=== PATIENT | male | born 1955 | race Caucasian/White ===

== ENCOUNTER 2021-12-28 18:49 | Emergency (ER) | payer MEDICARE, SELFPAY ==
[2021-12-28 21:01] VITALS: BP 148/76; PULSE 76; RESP 20; TEMP 37.2; O2SAT 98
[2021-12-28 21:29] VITALS: BP 148/76; PULSE 76; RESP 16; TEMP 37.2; O2SAT 98; BMI 29.5
== END 2021-12-28 22:49 | disposition left against medical advice (07) ==
PROVIDERS: Emergency Provider Emergency Medicine; PCP Internal Medicine
DX: S61.219A Laceration without foreign body of unspecified finger without damage to nail, initial encounter (principal); W26.9XXA Contact with unspecified sharp object(s), initial encounter; Y93.9 Activity, unspecified; Y92.9 Unspecified place or not applicable; Y99.9 Unspecified external cause status; Z79.899 Other long term (current) drug therapy
CPT/HCPCS: 99281; 99282

== ENCOUNTER 2024-09-08 22:56 | Emergency (ER) | payer BC, MEDICARE, SELFPAY ==
[2024-09-08 23:01] VITALS: BP 134/68; PULSE 76; O2SAT 97
[2024-09-08 23:15] VITALS: BP 115/57; PULSE 70; RESP 16; TEMP 36.1; O2SAT 96; BMI 24.0
[2024-09-08 23:21] VITALS: BP 139/65; PULSE 71; RESP 18; TEMP 36.6; O2SAT 95
[2024-09-08 23:46] LABS: Basophils Percent Auto 0.7 % (0-2); Eosinophils Absolute Auto 0.1 X10*3/uL (0.0-0.4); Eosinophils Percent Auto 2.6 % (0-4); Hematocrit 31.8 % (42.0-52.0); Hemoglobin 10.1 g/dl (14.0-18.0); Imm Gran Abs Auto 0.01 X10*3/uL (0.00-0.03); Imm Gran Pct Auto 0.2 % (0.0-0.4); Lymphocytes Absolute Auto 0.9 X10*3/uL (1.2-4.9); Lymphocytes Percent Auto 16.1 % (20-40); MANUAL DIFF FLAG NO; Mean Corpuscular HGB Conc 31.8 g/dl (31.0-36.0); Mean Corpuscular Hemoglobin 23.3 pg (27.0-33.0); Mean Corpuscular Volume 73.4 fL (80.0-98.0); Mean Platelet Volume 8.9 fL (9.4-12.4); Monocytes Absolute Auto 0.5 X10*3/uL (0.1-1.2); Monocytes Percent Auto 8.8 % (2-11); Neutrophils Absolute Auto 3.9 x10*3/uL (2.0-8.3); Neutrophils Percent Auto 71.6 % (45-73); Platelet Count 170 X10*3/uL (160-400); Red Blood Count 4.33 X10*6/uL (4.60-5.80); Red Cell Distribution Width 16.9 % (11.0-16.0); White Blood Count 5.5 X10*3/uL (4.8-10.8)
--- OUTSIDE RECORDS SUMMARY | 2024-09-08 23:47 | XMS_ITS | Clinical Summary ---
Author Organization [address] Address [address] [place] [address] Phone Care Team Providers Care Baling Machine Tender Name Role Phone Kaylie Sibley MD Primary Care Provider Allergies Active Allergy Reactions Criticality Noted Date Comments Cephalexin Monohydrate Hives High 02/20/2006 Levofloxacin Hives High 02/20/2006 Penicillin G Procaine Hives 05/31/2005 Sulfacetamide Sodium Hives 05/31/2005 Medications cholecalciferol (VITAMIN D-3) 50 mcg (2,000 unit) tablet Take 1 tablet (2,000 Units total) by mouth 1 (one) time each day. 05/18/19 23 Active warfarin (COUMADIN) 5 mg tablet Take 0.5-1 tablets (2.5-5 mg total) by mouth 1 (one) time each day. Sig - Route: Take 0.5-1 Tablets by mouth daily. May cause heavy bleeding. Take at same time every day. Do not change dietary habits. - Oral 01/03/20 24 Active multivitamin tablet Take 1 tablet by mouth 1 (one) time each day. Active omeprazole (PriLOSEC) [address] capsule Take 1 capsule (40 mg total) by mouth 1 (one) time each day before breakfast. 90 capsule 1 06/29/19 25 Active atorvastatin (LIPITOR) 20 mg tabletIndications: Hyperlipidemia, unspecified hyperlipidemia type Take 1 tablet (20 mg total) by mouth 1 (one) time each day. 90 each 1 09/06/19 25 025 Active atorvastatin (LIPITOR) 10 mg tabletIndications: Hyperlipidemia, unspecified hyperlipidemia type Take 1 tablet (10 mg total) by mouth at bedtime. 90 tablet 07/09/19 25 025 Discontinued atorvastatin (LIPITOR) 20 mg tabletIndications: Hyperlipidemia, unspecified hyperlipidemia type Take 1 tablet (20 mg total) by mouth 1 (one) time each day. 90 each 09/06/19 25 025 Discontinued Active Problems Problem Noted Date Diagnosed Date Chronic deep vein thrombosis of right lower extremity ([facility] V24, [facility]/HCC V28) 03/05/2024 Anxiety 04/28/2015 Hearing loss 03/16/2015 Venous angioma of brain ([facility] V24, [facility] V2 8) 11/19/2014 Mixed hyperlipidemia 08/31/2014 Compression fracture of body of thoracic vertebra ([facility] V24, [facility] V28) 04/06/2014 Overview (03/05/2024): T11, T8, L4 Vitamin D deficiency 09/08/2013 Gastroesophageal junction ulcer 07/13/2011 Overview (03/03/2024): [facility] 07/03/11 Colon cancer ([facility] V24, [facility] V28) 12/24/19 11 Malignant tumor of colon ([facility] V24, [facility] V 28) 11/25/2010 Overview (03/03/2024): May 2018 - had emergency rectal surgery at [facility] for a grapefruit-sized rectal mass which the patient reports as malignant. Patient reports will need to additional surgeries as well as chemo and radiation. He is being followed by a team at [facility]. 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 Indefinite coumadin IMO update Crohn's disease ([facility]/HCC V24, [facility]/HCC V28) 05/31 Overview (03/03/2024): Dx 2003; Treatments with Asacol Depression 05/31/2005 Encounters Date Type Department Care Team Description 09/03/2024 Anticoagulation - Warfarin Visit [facility] Clinic - [address] [phone] Sarah Tariq LPN Chronic deep vein thrombosis (DVT) of right lower extremity, unspecified vein ([facility]/HCC V24, [facility]/HCC V28) (Primary Dx) 08/26/2024 Anticoagulation - Warfarin Visit Coumadin [address] [phone] Marisabel Wan LPN Chronic deep vein thrombosis (DVT) of right lower extremity, unspecified vein ([facility]/HCC V24, [facility]/HCC V28) (Primary Dx) 08/22/2024 Telephone Adult Medicine [place] - [address] [phone] Isabella Hamilton MA Results 08/21/2024 Anticoagulation - Warfarin Visit Coumadin [address] [phone] Marisabel Wan LPN Chronic deep vein thrombosis (DVT) of right lower extremity, unspecified vein ([facility]/HCC V24, [facility]/HCC V28) (Primary Dx) 08/13/2024 Anticoagulation - Warfarin Visit Coumadin [address] [phone] Marisabel Wan LPN Chronic deep vein thrombosis (DVT) of right lower extremity, unspecified vein ([facility]/HCC V24, CMS/HCC V28) (Primary Dx) 08/08/2024 Anticoagulation - Warfarin Visit Coumadin [address] [phone] Marisabel Wan LPN Chronic deep vein thrombosis (DVT) of right lower extremity, unspecified vein ([facility]/HCC V24, [facility]/HCC V28) (Primary Dx) 08/04/2024 Anticoagulation - Warfarin Visit Coumadin [address] [phone] Sarah Tariq LPN Chronic deep vein thrombosis (DVT) of right lower extremity, unspecified vein ([facility] V24, [facility]/HCC V28) (Primary Dx) 07/31/2024 Anticoagulation - Warfarin Visit Coumadin [address] [phone] Sarah Tariq LPN Chronic deep vein thrombosis (DVT) of right lower extremity, unspecified vein ([facility] V24, CMS/HCC V28) (Primary Dx) 07/28/2024 Nurse Triage Adult Medicine [address] [phone] Kaylie Sibley MD 07/24/2024 Anticoagulation - Warfarin Visit Coumadin [address] [phone] Marisabel Wan LPN Chronic deep vein thrombosis (DVT) of right lower extremity, unspecified vein ([facility] V24, CMS/HCC V28) (Primary Dx) 06/25/2024 Anticoagulation - Warfarin Visit [address] [phone] Marisabel Wan LPN Chronic deep vein thrombosis (DVT) of right lower extremity, unspecified vein ([facility] V24, [facility]/HCC V28) (Primary Dx) from Last 3 Months Immunizations Name Administration Dates Next Due Influenza Quadravalent, 0.5m l (Fluad) 65yo and older 01/15/2023 Influenza Quadravalent, MDCK , 0.5ml, preservative free (Flucelvax) 6mo and older 01/15/2020 Influenza Quadrivalent, 0.5m l, preservative free (Fluarix; FluLaval; Fluzone) ages 6mo and older (Afluria) 3yo and older 01/25/2022 Influenza trivalent, 0.5mL ( Fluad) 65yo and older 01/21/2015,02/14/2012,01/28/2010,02/20 Influenza trivalent, 0.5mL ( Fluzone High-dose) 65yo and older 01/21/2024 Influenza trivalent, 0.5mL, preservative free (Fluarix; FluLaval; Fluzone) ages 6mo and older (Afluria) 3 years and older 01/28/2021,02/21/2008 Influenza trivalent, with pr eservative (Fluzone; Afluria) 6mo and older 02/15/2011,02/21/2008 Influenza, Unspecified 02/06/2023,2020,02/04/2019,02/12,02/21/2017,01/30/2016,02/08/2014 Moderna SARS-CoV-2 COVID-19, mRNA, LNP-S, preservative free 03/30/2023,04/17/2022 PPD Test 11/15/2010,03/03/2008 Pneumococcal conjugate 20 va lent (Prevnar 20, PCV 20) 2mo and older 01/15/2023 Pneumococcal polysaccharide 23 valent (Pneumovax 23) 2yo and older 11/19/2010 RSV, bivalent, protein subun it RSVpreF, 0.5mL, Preservative Free (Arexvy) 60yo and older 01/21/2024 Tdap Tetanus diptheria acell ular pertussis (Boostrix; Adacel) 7yo and older 11/11/2020,03/22/2010 Zoster recombinant (Shingrix ) 19yo and older 06/05/2023,06/01/2023,03/30/2023 Surgical History Surgery Date Site/Laterality Comments COLONOSCOPY W/ BIOPSIES 11/21/2010 PROCEDURE: [facility] COLONOSCOPY W/BIOPSY SINGLE/MULTIPLE; COMMENT: [facility]; AGAPITO; poorly diff adenoca, 2 separate sites. OTHER SURGICAL HISTORY 12/13/2010 PROCEDURE: [facility] COLCT TOT ABDL W/O PRCTECT W/ILEOST/ILEOPXTS; COMMENT: subtotal colectomy with ileostomy ESOPHAGOGASTRODUODENOSCOPY 07/05/2011 PROCEDURE: [facility] ESOPHAGOGASTRODUODENOSCOPY TRANSORAL DIAGNOSTIC; COMMENT: 5 mm distal esophageal ulcer, no bx, start ppi, [facility]ita at [facility]. Medical History Medical History Date Comments Depressive disorder, not els ewhere classified 05/31/2005 DX:Depressive disorder, not elsewhere classified Historical Medical DX 11/14/2006 DX:Other a cute embolism veins; COMMENT: recurrent DVT's-first event was in 2000 and recurrent event in 2002. Indefinite coumadin Idiopathic osteoporosis 02/12/2007 DX:Idiop athic osteoporosis Regional enteritis of unspec ified site 05/31/2005 DX:Regional enteritis of uns pecified site; COMMENT: Dx 2003; Treatments with Asacol Rosacea 04/02/2007 DX:Rosacea Peripheral neuropathy 04/02/2007 DX:Periphe ral neuropathy Special screening for malign ant neoplasms, colon 05/27/2009 DX:Special screening for mal ignant neoplasms, colon Colon cancer ([facility] V24, [facility] [place] V28) 11/25/2010 DX:Colon cancer (HCC) Rectal cancer ([facility]/HCC V24, [facility] V28) 06/24/2018 DX:Rectal cancer (HCC); COMM ENT: May 2018 - had emergency rectal surgery at [facility] for a grapefruit-sized rectal mass which the patient reports as malignant. Patient reports will need to additional surgeries as well as chemo and radiation. He is being followed by a team at [facility]. Family History Medical History Relation Name Comments Breast cancer Aunt Other: metastatic cancer (?type) Maternal Grandmother Diabetes Mother HTN Stroke Paternal Grandfather multipl e CVAs Crohn's disease Sister x 2 Relation Name Status Comments Aunt Brother x 1 Alive Father Alive Maternal Grandfather Maternal Grandmother Mother Paternal Grandfather Paternal Grandmother Sister x 2 Alive Social History Tobacco Use Types Packs/Day Years Used Date Smoking Tobacco: Former Cigarettes Q uit: 04/30/1996 Smokeless Tobacco: Never Alcohol Use Standard Drinks/Week Comments No 0 (1 standard drink = 0.6 oz pur e alcohol) Housing Instability Answer Date Recorde d Are you worried that in the next 2 months you may not have stable housing? No 04/02/2024 Food Access & Nutrition Answer Date Rec orded Do you have access to a vari ety of food including fruits and vegetables? Yes 04/02/2024 Access to Healthcare Answer Date Record ed Within the last 3 months, ho w many times did you visit the emergency department for your medical care? 0 04/02/2024 Health Literacy Answer Date Recorded How often do you need to hav e someone help you when you read instructions, pamphlets, or other written material from your doctor or pharmacy? Never 04/02/2024 Caregiver: How often do you need to have someone help you when you read instructions, pamphlets, or other written material from your doctor or pharmacy? Not on file 04/02/2024 Financial Risk Answer Date Recorded How hard is it for you to pa y for the very basics like food, housing, medical care, and air conditioning / heating? Somewhat hard 04/02/2024 Transportation Answer Date Recorded Has the lack of transportati on kept you from meetings, work, or from getting things needed for daily living? No Has the lack of transportati on kept you from medical appointments or from getting medications? No 04/02/2024 Social Isolation Answer Date Recorded How often do you feel lonely or isolated from th ose around you? Rarely 04/02/2024 Food Risk Answer Date Recorded Within the past 12 months we worried whether our food would run out before we got money to buy more. Patient declined 024 Within the past 12 months th e food we bought just didn't last and we didn't have money to get more. Patient declined 07/2023 Dependent Care Answer Date Recorded Do you need help finding or paying for care for your loved ones. For example, children's author or elderly care for an older adult? No 04/02/2024 Education Answer Date Recorded Do you think completing more education or training, like finishing a GED, going to college, or learning a trade, would be helpful for you? No 04/02/2024 Employment and Income Answer Date Recor ded During the last four weeks, have you been actively looking for work? No 04/02/2024 Living Situation Answer Date Recorded What is your living situation? 1 06/03/2023 Sex and Gender Information Value Date Recorded Sex Assigned at Not on file Legal Sex Male 5:47 PM EST Gender Identity Not on file Sexual Orientation Not on file Obstetrics History Last Filed Vital Signs Vital Sign Reading Time Taken Comments Blood Pressure 108/50 04/09/2024 9:17 AM EST Pulse 60 04/09/2024 9:17 AM EST Temperature 36.6 ??C (97.9 ??F) 04/09/2024 9:17 AM ES T Respiratory Rate 12 04/09/2024 9:17 AM EST Oxygen Saturation - - Inhaled Oxygen Concentration - - Weight 67.1 kg (148 lb) 04/09/2024 9:17 AM EST Height 165.1 cm (5' 5 ) 04/09/2024 9:17 AM EST Body Mass Index 24.63 04/09/2024 9:17 AM EST Plan of Treatment Health Maintenance Due Date Last Done Comments Abdominal Aortic Aneurysm (AAA) Screen 04/08/2022 Colorectal Cancer Screening: Colonoscopy 02/17/2024 02/16/2014 COVID-19 Vaccine (7 - Moderna risk ) 07/20/2024 01/21/2024, 03/30/2023, 04/17/2022, Additional history exists Depression Screening 04/02/2025 04/02/2024 Social Influencers of Health Screening 04/02/2025 04/02/2024 Falls Risk Assessment 04/09/2025 04/09/2024 Cholesterol Screening (Lipid Panel) 09/03/2029 09/03/2024, 07/24/2024, 05/07/2024, Additional history exists DTaP,Tdap,and Td Vaccines (3 - Td or Tdap) 11/11/2030 11/11/2020, 03/22/2010 Hepatitis C Screening Completed 05/25/2016 Pneumococcal Vaccine: 50+ Years Completed 01/15/2023, 11/19/2010 Zoster Vaccines Completed 06/05/2023, 02/0 05/2023, 03/30/2023 Influenza Vaccine Completed 01/21/2024, , 01/15/2023, Additional history exists RSV Immunization Adult Patients Completed 01/21/2024 HIB Vaccines Aged Out No longer eligi ble based on patient's age to complete this topic HPV Vaccines Aged Out No longer eligi ble based on patient's age to complete this topic Hepatitis A Vaccines Aged Out No long er eligible based on patient's age to complete this topic Hepatitis B Vaccines Aged Out No long er eligible based on patient's age to complete this topic IPV Vaccines Aged Out No longer eligi ble based on patient's age to complete this topic MMR Vaccines Aged Out No longer eligi ble based on patient's age to complete this topic Meningococcal ACWY Vaccine Aged Out N o longer eligible based on patient's age to complete this topic Meningococcal B Vaccine Aged Out No l onger eligible based on patient's age to complete this topic RSV Immunization Patients Under 20 months Aged Out No longer eligible based on patient's age to complete this topic Varicella Vaccines Aged Out No longer eligible based on patient's age to complete this topic Procedures Procedure Name Priority Date/Time Associated Diagnosis Comments PROTHROMBIN TIME WITH INR Routine 09/03/2024 11:58 AM EDT DVT, lower extremity, recurrent, right (CMS/HCC V24, CMS/HCC V28) Anticoagulation management encounter LIPID PANEL WITH REFLEX TO DIRECT LDL Routine 09/03/2024 11:58 AM EDT Hyperlipidemia, unspecified hyperlipidemia type PROTHROMBIN TIME WITH INR Routine 08/26/2024 8:23 AM EDT DVT, lower extremity, recurrent, right (CMS/HCC V24, CMS/HCC V28) Anticoagulation management encounter PROTHROMBIN TIME WITH INR Routine 08/21/2024 8:02 AM EDT DVT, lower extremity, recurrent, right (CMS/HCC V24, CMS/HCC V28) Anticoagulation management encounter PROTHROMBIN TIME WITH INR Routine 08/13/2024 9:09 AM EDT DVT, lower extremity, recurrent, right (CMS/HCC V24, CMS/HCC V28) Anticoagulation management encounter PROTHROMBIN TIME WITH INR Routine 08/08/2024 12:23 PM EDT DVT, lower extremity, recurrent, right (CMS/HCC V24, CMS/HCC V28) Anticoagulation management encounter PROTHROMBIN TIME WITH INR Routine 08/04/2024 9:04 AM EDT DVT, lower extremity, recurrent, right (CMS/HCC V24, CMS/HCC V28) Anticoagulation management encounter PROTHROMBIN TIME WITH INR Routine 07/31/2024 8:07 AM EDT DVT, lower extremity, recurrent, right (CMS/HCC V24, CMS/HCC V28) Anticoagulation management encounter LIPID PANEL WITH REFLEX TO DIRECT LDL Routine 07/24/2024 8:25 AM EDT Mixed hyperlipidemia PROTHROMBIN TIME WITH INR Routine 07/24/2024 8:25 AM EDT DVT, lower extremity, recurrent, right (CMS/HCC V24, CMS/HCC V28) Anticoagulation management encounter PROTHROMBIN TIME WITH INR Routine 06/25/2024 9:17 AM EST DVT, lower extremity, recurrent, right (CMS/HCC V24, CMS/HCC V28) Anticoagulation management encounter HEPATITIS C SCREENING Routine 05/25/2016 from Last 3 Months or Most Recently Relevant to Health Maintenance Results * (ABNORMAL) Lipid panel with reflex to direct LDL (09/03/2024 11:58 AM EDT) Only the most recent of2 resultswithin the time period is included. Cholesterol 146 0 - 200 mg/dL LAB CHEMISTRY METHOD 09/03/2024 4:15 PM [facility] Triglycerides 327(H) 0 - 150 mg/dL LAB CHEMISTRY METHOD 09/03/2024 4:15 PM [facility] HDL 36(L) >=40 mg/dL LAB CHEMISTRY METHOD 09/03/2024 4:15 PM [facility] LDL Calculated 45 0 - 100 mg/dL LAB CHEMISTRY METHOD 09/03/2024 4:15 PM [facility] VLDL Cholesterol Rodri 65.4 mg/dL LAB CHEMISTRY METHOD 09/03/2024 4:15 PM [facility] Non HDL Chol. (LDL+VLDL) 110 <145 mg/dL LAB CHEMISTRY METHOD 09/03/2024 4:15 PM [facility] Chol/HDL Ratio 4.1 0.0 - 4.4 LAB CHEMISTRY METHOD 09/03/2024 4:15 PM EDT [facility] Blood Venous blood specimen / Unknown Venipuncture / Unknown 09/03/2024 11:58 AM EDT 09/03/2024 11:58 AM EDT Kaylie Sibley MD LAB BLOOD ORDERABLES Final Result Performing Organization Address [facility] de Phone Number [facility] [address] [place] [address], [place] [phone] * (ABNORMAL) Prothrombin time with INR (09/03/2024 11:58 AM EDT) Only the most recent of9 resultswithin the time period is included. Protime 46.7(H) 10.6 - 13.9 sec LAB COAGULATION METHOD 09/03/2024 2:19 PM EDT [facility] INR 3.8 LAB COAGULATION METHOD 09/03/2024 2:19 PM EDT [facility] Blood Venous blood specimen / Unknown Venipuncture / Unknown 09/03/2024 11:58 AM EDT 09/03/2024 11:58 AM EDT Kaylie Sibley MD LAB BLOOD ORDERABLES Final Result Performing Organization Address [facility]/ZIP Co de Phone Number [facility] [address] [place] [address], [place] [phone] * Hepatitis C Screening (05/25/2016) Hepatitis C Screening abstracted Swathi Cole MD HEALTH MAINTENANCE Final Result from Last 3 Months or Most Recently Relevant to Health Maintenance Insurance MEDICARE [facility]) Care Teams Baling Machine Tender Relationship Specialty Start Date End Date Kaylie Sibley MD [address] [place] [address] PCP - General 06/08/23
--- OUTSIDE RECORDS SUMMARY | 2024-09-08 23:48 | XMS_ITS | Encounter Summary ---
Author Organization [facility] Address [address] [place] [address] Care Team Providers Care Art Museum Docent Name Role Phone Kaylie Sibley MD Primary Care Provider [phone]- [phone] Encounter Details Date Type Department Care Team (Latest Contact Info) Description 09/03/2024 Anticoagulation - Warfarin Visit Coumadin Clinic [address] [phone] Sarah Tariq LPN Chronic deep vein thrombosis (DVT) of right lower extremity, unspecified vein (CMS/HCC V24, CMS/HCC V28) (Primary Dx) Social History Tobacco Use Types Packs/Day Years [...] Record ed Within the last 3 months, ray wallace many times did you visit the emergency [...] care for your loved ones. For example, child care nurse or elderly care for an older adult? [...] on file Sexual Orientation Not on file documented as of this encounter Plan of Treatment Not on file documented as of this encounter Visit Diagnoses Diagnosis Chronic deep vein thrombosis (DVT) of right lower extremity, unspecified vein (CMS/HCC V24, CMS/HCC V28)- Primary documented in this encounter Additional Health Concerns Assessment Noted Time PHQ-9 Depression Total Score: 0 04/02/20 24 1:26 PM EST documented as of this encounter Care Teams Art Museum Docent Relationship Specialty Start Date End Date Kaylie Sibley MD [address] [place] [address] PCP - General 06/08/23 documented as of this encounter
--- OUTSIDE RECORDS SUMMARY | 2024-09-08 23:48 | XMS_ITS | Encounter Summary ---
[facility] Address [address] [place] [address] Care Team Providers Care Molecular Biology Director Name Role Phone Kaylie Sibley MD Primary Care Provider [phone]- [phone] Encounter Details Date Type Department Care Team (Latest Contact Info) Description 08/26/2024 Anticoagulation - Warfarin Visit Coumadin Clinic [address] [phone] Marisabel Wan LPN Chronic deep vein thrombosis [...] ed Within the last 3 months, ho rodrigo many times did you visit the emergency [...] care for your loved ones. For example, early childhood associate or elderly care for an older adult? [...] documented as of this encounter Care Teams Molecular Biology Director Relationship Specialty Start Date End Date Kaylie Sibley MD [address] [place] [address] PCP - General 06/08/23 documented as of this encounter
--- OUTSIDE RECORDS SUMMARY | 2024-09-08 23:48 | XMS_ITS | Encounter Summary ---
Author Organization [facility] Address [address] [place] [address] Care Team Providers Care Clinical Trials Manager Name Role Phone Kaylie Sibley MD Primary Care Provider [phone]- [phone] Reason for Referral * Consultation (Routine) - Authorized Specialty Diagnoses / Procedures Referred By Eva robertson Referred To Contact Otolaryngology Diagnoses Hearing loss, unspecified hearing loss type, unspecified laterality Kaylie Sibley MD [address] [place] [address] Phone: tel: fax: [facility] [address] [place] [address] Phone: tel: fax: Referral ID Status Reason Start Date Expiration Date Visits Requested Visits Authorized [id number] Authorized Specialty Services Required 07/29/2024 07/29/2025 1 1 Encounter Details Date Type Department Care Team (Late st Contact Info) Description 07/28/2024 Nurse Triage Adult Medicine [address] [phone] Kaylie Sibley MD [address], [place] Social History Tobacco Use Types Packs/Day Years [...] for your loved ones. For example, child and family services specialist or elderly care for an older adult? [...] on file documented as of this encounter Progress Notes * Sharon Amor RN - 07/29/2024 10:55 AM EDT Pt has chronic hearing loss and is asking for an ENT referral for evaluation, last visit with dr Sibley 03/2024 no f/u scheduled documented in this encounter Plan of Treatment Scheduled Referrals Name Type Priority Associated Diagnoses Order Schedule Ambulatory referral to ENT Outpatient Referral Routine Hearing loss, unspecified hearing loss type, unspecified laterality 1 Occurrences starting 07/29/2024 until 07/29/2025 documented as of this encounter Visit Diagnoses Diagnosis Hearing loss, unspecified hearing loss type, unspecified laterality- Primary documented in this encounter Additional Health Concerns Assessment Noted Time PHQ-9 Depression Total Score: 0 04/02/20 24 1:26 PM EST documented as of this encounter Care Teams Clinical Trials Manager Relationship Specialty Start Date End Date Kaylie Sibley MD [address] [place] [address] PCP - General 06/08/23 documented as of this encounter
[2024-09-09 00:03] LABS: Alanine Aminotransferase 17 U/L (0-40); Alkaline Phosphatase 111 U/L (39-117); Anion Gap 12 (12-20); Aspartate Amino Transferase 38 U/L (5-37); Bilirubin Total 0.5 mg/dL (0.0-1.0); Blood Urea Nitrogen 10 mg/dL (9-16); Calcium 9.4 mg/dL (8.4-10.2); Carbon Dioxide 25 mmol/L (22-29); Chloride 105 mmol/L (96-108); Creatinine Clr Calc Pharmacy 61.4; Estimated Glomerular Filt Rate > 60; Glucose Random 124 mg/dL (60-115); Potassium 3.6 mmol/L (3.3-5.1); Sodium 138 mmol/L (135-145); Total Protein 7.4 g/dL (6.5-8.0)
--- NOTE | 2024-09-09 00:32 | ED_ITS ---
HPI - General Adult General Chief complaint: General Medical Stated complaint: bilateral leg pain unable to walk, hx blood clots Time Seen by Provider: 09/08/24 23:57 Source: patient Limitations: no limitations History of Present Illness ED Provider: Kathya Garcia PA-C HPI narrative: 68-year-old male presents with bilateral calf pain. Patient states he has been performing a great deal of physical activity at home; his basement flooded with water, he has been removing water up and down the cellar stairs for the past 2 days. Tonight while watching TV, he experienced intense cramping in bilateral calves. Symptoms have resolved. Related Data Previous Rx's ?Medication ?Instructions ?Recorded methocarbamol 750 mg tablet 750 mg PO Q8H PRN pain #10 tabs 09/09/24 Allergies Allergy/AdvReac Type Severity Reaction Status Date / Time No Known Allergies Allergy Verified 09/08/24 23:17 Review of Systems 2 Review of Systems: Yes all other systems are reviewed and are negative Constitutional: Constitutional: Denies fatigue and Denies fever(s) Musculoskeletal: Musculoskeletal: Denies arthralgias, Denies joint swelling, Reports muscle cramps, Denies muscle weakness, Denies numbness and Denies tingling Neurologic: Denies numbness and Denies tingling Endocrine: Endocrine: Denies fatigue PMFSH Past Medical History Attestation statement: The following information was validated with the patient. Social History Social History Smoked in Last 30 Days: No Use of substances other than those prescribed or required for medical reasons: No Advance Directives: No Advance Directives Information Provided: Yes Do you have a plan to hurt others: No Plan Physical Exam ED Vital Signs: Vital Signs - 24 hr 09/08/24 23:15 09/08/24 23:21 09/09/24 02:05 Temperature 97.0 F 98 F 98 F Pulse Rate 70 71 60 Respiratory Rate 16 18 18 Blood Pressure 115/57 L 139/65 121/57 L Pulse Oximetry 96 95 Oxygen Delivery Method Room Air Room Air Room Air Oxygen Flow Rate 98 BMI result Body Mass Index 24.0 Const Other: Alert well-appearing Orientation/consciousness: patient oriented x3 Resp Effort & Inspection: normal respiratory effort Cardio Other: Normal peripheral perfusion, no pedal edema Skin Other: Warm dry no rash Neuro General: patient oriented x3, gait normal, no focal motor deficits and CN's II- XI intact bilaterally Extrem Other: Bilateral lower extremities are symmetric in size no edema, the patient is having a muscle cramp now in real time, can see the contraction Psych Other: Cooperative Medications Administered Discontinued Medications Generic Name Dose Route Start Last Admin Trade Name Devi PRN Reason Stop Dose Admin Diazepam 2 mg 09/09/24 00:49 09/09/24 01:00 Diazepam 2 Mg Tablet PO 09/09/24 00:50 2 mg ONCE ONE Administration Sodium Chloride 1,000 mls @ 999 mls/hr 09/09/24 01:30 09/09/24 01:38 Ns IV 09/09/24 02:30 999 mls/hr .Q1H1M TYLOR Administration Medical Decision Making Medical Decision Making [facility] Narrative: 68-year-old male presents with bilateral calf pain. Patient states he has been performing a great deal of physical activity at home; his basement flooded with water, he has been removing water up and down the cellar stairs for the past 2 days. Tonight while watching TV, he experienced intense cramping in bilateral calves. Symptoms have resolved. No relevant chronic issues History: Per patient I have considered the following differential diagnoses: Muscle cramps, electrolyte abnormality, dehydration, rhabdomyolysis Plan: Screening labs were obtained from triage everything is unremarkable. He is not clinically dehydrated his renal function is normal, nothing to suggest rhabdomyolysis based on kidney function. We will add a CPK. I could visualize the muscle cramp in real time in the exam room. We will send with home care instructions and muscle relaxants. I have independently reviewed the following tests: Labs: No leukocytosis, not anemic, no electrolyte abnormality, creatinine normal, CPK 318 giving a liter of IVF Lab Data 09/08/24 23:39 09/08/24 23:39 Labs: Lab Results 09/08/24 Range/Units 23:39 WBC 5.5 (4.8-10.8) X10*3/uL RBC 4.33 L (4.60-5.80) X10*6/uL Hgb 10.1 L (14.0-18.0) g/dl Hct 31.8 L (42.0-52.0) % MCV 73.4 L (80.0-98.0) fL MCH 23.3 L (27.0-33.0) pg MCHC 31.8 (31.0-36.0) g/dl RDW 16.9 H (11.0-16.0) % Plt Count 170 (160-400) X10*3/uL MPV 8.9 L (9.4-12.4) fL Immature Gran % (Auto) 0.2 (0.0-0.4) % Neut % (Auto) 71.6 (45-73) % Lymph % (Auto) 16.1 L (20-40) % Cascade % (Auto) 8.8 (2-11) % Eos % (Auto) 2.6 (0-4) % Baso % (Auto) 0.7 (0-2) % Lymph # (Auto) 0.9 L (1.2-4.9) X10*3/uL Cascade # (Auto) 0.5 (0.1-1.2) X10*3/uL Eos # (Auto) 0.1 (0.0-0.4) X10*3/uL Baso # (Auto) 0.0 (0.0-0.2) X10*3/uL Abs Immat Gran (auto) 0.01 (0.00-0.03) X10*3/uL Absolute Neuts (auto) 3.9 (2.0-8.3) x10*3/uL Absolute Nucleated RBC 0.000 (0.0-0.012) X10*3/uL Nucleated RBC % (auto) 0.0 (0.0-0.2) /100WBC PT 23.0 H (10.9-12.4) SEC INR 2.0 H (0.9-1.1) Sodium 138 (135-145) mmol/L Potassium 3.6 (3.3-5.1) mmol/L Chloride 105 (96-108) mmol/L Carbon Dioxide 25 (22-29) mmol/L Anion Gap 12 (12-20) BUN 10 (9-16) mg/dL Creatinine 0.99 (0.5-1.4) mg/dL Estim Creat Clear Calc 61.4 Estimated GFR > 60 Random Glucose 124 H (60-115) mg/dL Calcium 9.4 (8.4-10.2) mg/dL Total Bilirubin 0.5 (0.0-1.0) mg/dL AST 38 H (5-37) U/L ALT 17 (0-40) U/L Alkaline Phosphatase 111 (39-117) U/L Total Creatine Kinase 318 H (38-174) U/L Total Protein 7.4 (6.5-8.0) g/dL Albumin 4.0 (3.5-5.0) g/dL Discharge Plan Discharge Clinical Impression: Cramp in muscle Patient Disposition: Home, Self-Care Instructions: Leg Cramps (ED), Muscle Spasm (ED), Muscle Cramp (ED) Additional Instructions: You are being treated for muscle cramps. This is secondary to the heavy activity you were performing. You need to be sure to hydrate well throughout the day, and drink an electrolyte based drink such as Gatorade, drinking 96 oz of fluid a day. Use the methocarbamol as needed for muscle cramps, this is a muscle relaxant, it will cause drowsiness do not drive or operate machinery while taking the medication. Follow up with your primary care provider as needed. Prescriptions: New methocarbamol 750 mg tablet 750 mg PO Q8H PRN (Reason: pain) Qty: 10 0RF Print Language: Malian
[2024-09-09] MEDS: diazePAM 2 MG TABLET PO (01:00)
--- NOTE | 2024-09-09 01:00 | PC.NURSE ---
medicated per mar.
--- NOTE | 2024-09-09 01:03 | PC.NURSE ---
medicated per mar, pt awaiting ride home
[2024-09-09] MEDS: 0.9 % Sodium Chloride 1,000 ML 999 ML IV (01:38)
--- NOTE | 2024-09-09 01:41 | PC.NURSE ---
iv PLACED AND FLUID HUNG
[2024-09-09 02:05] VITALS: BP 121/57; PULSE 60; RESP 18; TEMP 36.6
--- NOTE | 2024-09-09 03:28 | PC.NURSE ---
per provider of to stay until am when he able to secure a ride home.
[2024-09-09 04:03] VITALS: BP 121/57; PULSE 60; RESP 18; TEMP 36.6
--- NOTE | 2024-09-09 04:09 | PC.NURSE ---
reviewed discharge instructions with pt , pt verbalized understanding.
== END 2024-09-09 04:10 | disposition home or self-care (01) ==
PROVIDERS: Physician Assistant Medical; Emergency Provider Emergency Medicine
DX: R25.2 Cramp and spasm (principal); M79.662 Pain in left lower leg; M79.661 Pain in right lower leg; Z86.718 Personal history of other venous thrombosis and embolism
CPT/HCPCS: 36415; 80053; 82550; 85025; 85610; 96360; 96361; 99284